=== PATIENT | male | born 1975 | race Caucasian/White ===

== ENCOUNTER 2021-05-07 09:45 | Day surgery (SDC) | payer OTHER ==
[~2021-05-07] VITALS: Ht 182.9 cm; Wt 92.1 kg
[2021-05-07] MEDS ORDERED: FENTANYL PF 100 MCG/2ML IV PRN (10:00)
[2021-05-07] MEDS ORDERED: HALOPERIDOL 5 MG/ML IV PRN (10:00)
[2021-05-07] MEDS ORDERED: ALBUTEROL/IPRATROPIUM 2.5MG/0.5MG, 3 ML NPPB PRN (10:00)
[2021-05-07] MEDS ORDERED: HYDROcodone/APAP 7.5-325MG/15ML UDC PO PRN (10:00)
[2021-05-07] MEDS ORDERED: MIDAZOLAM 1 MG/ML, 2ML IV PRN (10:00)
[2021-05-07] MEDS ORDERED: METHOCARBAMOL 1,000 MG in DEXTROSE 5% 100 ML IV PRN (10:00)
[2021-05-07] MEDS ORDERED: HYDROmorphone 1 MG/ML, 1ML INJ IVPush PRN (10:00)
[2021-05-07] MEDS ORDERED: ACETAMINOPHEN 325 MG TABLET PO PRN (10:00)
[2021-05-07] MEDS ORDERED: EPHEDRINE 50 MG/ML, 1ML IVPush PRN (10:00)
[2021-05-07] MEDS ORDERED: OXYcodone 5 MG/5 ML ORAL.SOL UDC PO PRN (10:00)
[2021-05-07] MEDS ORDERED: EPHEDRINE 50 MG/ML, 1ML IM PRN (10:00)
[2021-05-07] MEDS ORDERED: LORazepam 2 MG/ML, 1ML IVPush PRN (10:00)
[2021-05-07] MEDS ORDERED: METOPROLOL 1 MG/ML, 5ML IV PRN (10:00)
[2021-05-07] MEDS ORDERED: MEPERIDINE/PF 25MG/0.5ML IVPush PRN (10:00)
[2021-05-07] MEDS ORDERED: DIPHENHYDRAMINE 50 MG/ML, 1ML IVPush PRN ×2 (10:00→12:30)
[2021-05-07] MEDS ORDERED: ONDANSETRON 2MG/ML, 2ML IVPush PRN (10:00)
[2021-05-07] MEDS ORDERED: LABETALOL 5MG/ML, 20ML IV PRN (10:00)
[2021-05-07] MEDS ORDERED: KETOROLAC 30 MG/1 ML IM PRN (10:00)
[2021-05-07] MEDS ORDERED: hydrALAzine 20 MG/ML, 1ML IV PRN (10:00)
[2021-05-07] MEDS ORDERED: METOCLOPRAMIDE 5 MG/ML, 2ML IVPush PRN (10:00)
[2021-05-07] MEDS ORDERED: DIAZEPAM 5 MG/ML, 2ML IVPush PRN (10:00)
[2021-05-07 10:20] VITALS: BP 135/95
[2021-05-07] MEDS ORDERED: PROPOFOL 10 MG/ML, 20ML ONE (10:21)
[2021-05-07] MEDS ORDERED: MIDAZOLAM 1 MG/ML, 2ML ONE (10:21)
[2021-05-07] MEDS ORDERED: GLYCOPYRROLATE 0.2MG/1ML, 5ML ONE (10:21)
[2021-05-07] MEDS ORDERED: DEXAMETHASONE 4 MG/ML, 1ML ONE (10:21)
[2021-05-07] MEDS ORDERED: LIDOCAINE-MPF 2% ,5ML ONE (10:21)
[2021-05-07] MEDS ORDERED: ROCURONIUM 10MG/ML,5ML ONE (10:21)
[2021-05-07] MEDS ORDERED: FENTANYL PF 250 MCG/5ML ONE (10:22)
[2021-05-07] MEDS ORDERED: LACTATED RINGERS 1,000 ML IV SCH (10:30)
[2021-05-07] MEDS ORDERED: CHLORHEXIDINE 15 ML UDC PO ONE (10:30)
[2021-05-07] MEDS ORDERED: EPINEPHRINE 1 MG/ML, 1ML ONE (10:41)
[2021-05-07] MEDS ORDERED: BUPIVACAINE/PF 0.5% ONE (10:41)
[2021-05-07] MEDS ORDERED: CEFAZOLIN 1,000 MG ONE (11:07)
[2021-05-07] MEDS ORDERED: HYDROcodone/APAP 5/325 TABLET PO PRN (12:30)
[2021-05-07] MEDS ORDERED: KETOROLAC 30 MG/1 ML IVPush PRN (12:30)
[2021-05-07] MEDS ORDERED: morphine SULFATE 10 MG/ML, 1ML IVPush PRN (12:30)
[2021-05-07] MEDS ORDERED: HYDR-2214 PO (12:33)
[2021-05-07] MEDS ORDERED: ONDA4TAB7 PO (12:33)
[2021-05-07] MEDS ORDERED: ACETAMINOPHEN 650 MG/20.3 ML UDC ONE (13:04)
[2021-05-07] MEDS ORDERED: OXYcodone 5 MG/5 ML ORAL.SOL UDC ONE (13:04)
== END 2021-05-07 15:30 | disposition home or self-care (01) ==
LOC: OR 09:45 → OUT 15:30
PROVIDERS: ATTEND Surgery
DX: K40.91 Unilateral inguinal hernia, without obstruction or gangrene, recurrent (principal); K43.0 Incisional hernia with obstruction, without gangrene; Z79.899 Other long term (current) drug therapy; Z87.891 Personal history of nicotine dependence
CPT/HCPCS: 49651; 49655; C1781; J0171; J0690; J1100; J2250; J2704; J3010; J7120; S2900